=== PATIENT | female | born 1985 | race African-American/Black ===

== ENCOUNTER 2023-12-18 08:34 | Emergency (ER) | payer OTHER, SELFPAY ==
--- NOTE | 2023-12-18 08:38 | ED.EYEPROB ---
HPI - Eye Problem General Chief complaint: Eye Problems Stated complaint: lt eye irritation Time Seen by Provider: 12/18/23 08:45 Source: patient and RN notes reviewed Mode of arrival: ambulatory Limitations: no limitations History of Present Illness HPI Narrative: 38-year-old female presents to the [facility] with complaints of left eye irritation. Patient reports that her eyes were crusted shut was thick yellow and green drainage this morning. Denies any trauma Up-to-date on immunization Does not were glasses or contact Onset (ago): hour(s) Related Data Patient tetanus UTD: Yes Home Medications Medication Instructions Recorded Confirmed Wellbutrin 12/18/23 12/18/23 Allergies Allergy/AdvReac Type Severity Reaction Status Date / Time No Known Allergies Allergy Verified 12/18/23 08:52 Review of Systems Review of Systems: All systems reviewed & are unremarkable except as noted in HPI and below Constitutional: Constitutional: Reports no additional constitutional complaints Eyes: Eyes: Reports as per HPI, Denies change in vision, Reports eye discharge, Reports irritation and Reports itchy eyes ENT: Reports system reviewed and no additional complaints, except as documented Cardiovascular: Cardiovascular: Reports no additional cardiovascular complaints, Denies chest pain and Denies dyspnea Respiratory: Respiratory: Reports no additional respiratory complaints, Denies chest congestion, Denies cough and Denies dyspnea Gastrointestinal: Gastrointestinal: Reports no additional gastrointestinal complaints, Denies abdominal pain, Denies nausea and Denies vomiting Musculoskeletal: Musculoskeletal: Reports no additional musculoskeletal complaints Integumentary/Breasts: Skin/Breast: Reports system reviewed and no additional complaints, except as docu Neurologic: Reports system reviewed and no additional complaints, except as documented Psychiatric: Psychiatric: Reports no additional psychiatric complaints Allergic/Immunologic: Allergic/Immunologic: Reports no additional allergic/immunologic complaints [facility] Past Medical History Medical History (Updated 12/18/23 @ 08:56 by Martha Pate APRN) Anxiety and depression Surgical History Surgical History (Updated 12/18/23 @ 08:56 by Martha Pate APRN) History of 2020 History of mandibular surgery Jaw reconstruction 2016 Social History Social History (Updated 12/18/23 @ 08:56 by Martha Pate APRN) Living arrangements: with family Gender identity (if verbalized by the patient): Female Comments At the time of my signature, I reviewed and agree with the nursing past medical, surgical, social, and family history. There is no relevant family history pertinent to the patient complaint. Exam Const: General: cooperative, healthy appearing, comfortable, no acute distress, well developed, alert and well nourished Nutritional Appearance: well nourished Orientation/consciousness: patient oriented x3 Limitations: no limitations HENMT: Head: normal to inspection Ears: hearing grossly normal bilaterally, external ears normal, TM's normal bilaterally, EAC's normal, mastoids normal and no periauricular adenopathy Face/Nose/Sinus: Normal external nose present, Normal nares present, Normal nasal mucous membranes and turbinates present, normal facial exam and face symmetric Face and sinus: normal facial exam and face symmetric Mouth: Yes Normal oral and palatal mucosa present, Yes lip normal and Yes moist mucous membranes Throat: posterior oropharynx normal, tonsils normal, uvula midline and no uvular edema Eyes: General: appearance normal, both eyes and all related structures Visual Sandhu: normal visual sandhu by confrontation Alignment and Position: alignment normal Periorbital: periorbital findings normal Eyelids: eyelid abnormality left upper eyelid lid margins crusty/scaly and left lower eyelid lid margins crusty/scaly; without inflamed cysts,
[2023-12-18 08:54] VITALS: BP 114/78; PULSE 85; RESP 20; TEMP 36.4; O2SAT 100
== END 2023-12-18 09:00 | disposition home or self-care (01) ==
PROVIDERS: Emergency Provider Nurse Practitioner
DX: H10.9 Unspecified conjunctivitis (principal); F41.8 Other specified anxiety disorders
CPT/HCPCS: 99203; G0463

== ENCOUNTER 2024-03-17 10:31 | Emergency (ER) | payer OTHER, SELFPAY ==
[2024-03-17 10:52] VITALS: BP 109/53; PULSE 65; RESP 18; TEMP 36.4; O2SAT 100
--- NOTE | 2024-03-17 11:06 | ED.NAVMDI ---
HPI - Nausea/Vomiting/Diarrhea General Chief complaint: Skin/Abscess/Foreign Body Stated complaint: diarrhea Time Seen by Provider: 03/17/24 10:51 Source: patient and RN notes reviewed Mode of arrival: ambulatory Limitations: no limitations History of Present Illness HPI Narrative: Patient presents today complaining of of 5 day history of diarrhea. She describes the diarrhea as watery, and has 5-6 episodes per day. Denies blood or mucus in the stool. She does report some intermittent lower abdominal cramping as well. Denies fever, nausea or vomiting. Continues to eat and drink well. She has tried Pepto and a probiotic without much relief. She is also complaining of a cold sore to the left lower lip x2 days. Denies any suspicious food intake. No one else in her home has any similar symptoms. Related Data Home Medications Medication Instructions Recorded Confirmed bupropion HCl 75 mg tablet See Rx Instructions .Route .COMPLEX 12/18/23 12/18/23 segesterone acet 0.15 mg-ethinyl 1 vag ring vaginal ONCE 03/17/24 03/17/24 estradiol 0.013 mg/24 hr vaginal ring ([place]) Allergies Allergy/AdvReac Type Severity Reaction Status Date / Time No Known Allergies Allergy Verified 03/17/24 10:43 Review of Systems Review of Systems: CONSTITUTIONAL: Denies body aches, fever, chills, or sweats. EYES: Denies visual changes, redness, or discharge. ENT: Denies rhinorrhea, congestion, sore throat, or otalgia. CARDIOVASCULAR: Denies chest pain, palpitations, or edema. RESPIRATORY: Denies cough or dyspnea. GASTROINTESTINAL: Denies abdominal pain, nausea, vomiting. + diarrhea GENITOURINARY: Denies dysuria or hematuria. SKIN: Denies itching, or wounds.+ rash MUSCULOSKELETAL: Denies back pain, joint pain, or myalgia. NEUROLOGIC: Denies headache, numbness, tingling, or weakness. PSYCH: Denies depression or anxiety. [facility] Past Medical History Medical History Anxiety and depression Surgical History Surgical History History of 2019 History of mandibular surgery Jaw reconstruction 2016 Social History Social History Living arrangements: with family Gender identity (if verbalized by the patient): Female Comments At time of signature, I have reviewed and agree with nursing past medical, surgical, social and family history unless otherwise noted. Please see nursing chart for further information. There is no relevant family history pertinent to the presenting complaint Exam Narrative: GENERAL: Well-appearing, well-nourished, and in no acute distress. HEAD: Normocephalic, atraumatic. EYES: EOMI. No redness or drainage. Conjunctivae normal. ENT: Mucous membranes pink and moist. NECK: Normal AROM. CHEST: No respiratory distress. Clear to auscultation. HEART: Regular rate and rhythm. No murmur appreciated. Normal peripheral pulses. ABDOMEN: Soft, nontender, nondistended, hyperactive bowel sounds. EXTREMITIES: Normal range of motion. No edema. SKIN: Warm, dry. Capillary refill normal. Normal skin turgor.+ cluster of tiny vesicles to the left lateral lower lip. NEURO: No focal deficits. Alert and oriented x3. Gait steady. PSYCH: Normal affect. No signs of depression or anxiety. Course Course Level of Care: Express Care Visit Vital Signs Vital signs: Vital Signs Temperature 97.5 F L 03/17/24 10:52 Pulse Rate 65 03/17/24 10:52 Respiratory Rate 18 03/17/24 10:52 Blood Pressure 109/53 L 03/17/24 10:52 Pulse Oximetry 100 03/17/24 10:52 Oxygen Delivery Room Air 03/17/24 10:52 Temperature 97.5 F L 03/17/24 10:52 Pulse Rate 65 03/17/24 10:52 Respiratory Rate 18 03/17/24 10:52 Blood Pressure 109/53 L 03/17/24 10:52 Pulse Oximetry 100 03/17/24 10:52 Oxygen Delivery Room Air
== END 2024-03-17 11:10 | disposition home or self-care (01) ==
PROVIDERS: Emergency Provider Nurse Practitioner
DX: B00.1 Herpesviral vesicular dermatitis (principal); R19.7 Diarrhea, unspecified; F41.9 Anxiety disorder, unspecified; F32.A Depression, unspecified
CPT/HCPCS: 99213; G0463